=== PATIENT | female | born 1995 | race Hispanic/Latino ===

== ENCOUNTER → 2017-01-09 | Outpatient (REF) | payer BC | LOC: M SFHCLUC 16:24 | PROVIDERS: ATTEND Nurse Practitioner Family | DX: H92.01 Otalgia, right ear (principal) ==

== ENCOUNTER → 2017-12-12 | Outpatient (REF) | payer BC | LOC: M SFHCLERA 10:38 | DX: J02.9 Acute pharyngitis, unspecified (principal) ==

== ENCOUNTER → 2018-02-04 | Outpatient (REF) | payer BC ==
[2018-02-04 16:45] LABS: APPEARANCE, URINE HAZY (CLEAR); BACTERIA, URINE AUTO 1+ (NEGATIVE); BILIRUBIN, URINE AUTO NEGATIVE (NEGATIVE); BLOOD, URINE BLOOD 2+ (NEGATIVE); COLOR, URINE YELLOW (YELLOW); GLUCOSE, URINE (UA) AUTO NEGATIVE (NEGATIVE); KETONE, URINE AUTO NEGATIVE (NEGATIVE); LEUKOCYTE ESTERASE, URINE AUTO 1+ (NEGATIVE); MUCUS, URINE SMALL (NEGATIVE); NITRITE, URINE AUTO NEGATIVE (NEGATIVE); PROTEIN, URINE AUTO 1+ mg/dL (NEGATIVE); RBC, URINE AUTO 51 /HPF (0-3); SPECIFIC GRAVITY URINE AUTO 1.023 (1.002-1.035); SQUAMOUS EPITHELIAL CELL UR AU 3 /HPF (0-6); WBC, URINE AUTO 21 /HPF (0-3)
[2018-02-04 20:19] LABS: CHLAMYDIA DNA AMPLIFICATION NEGATIVE (NEGATIVE); GC DNA AMPLIFICATION NEGATIVE (NEGATIVE)
== END ==
LOC: M SFHCLERA 14:52
DX: R82.2 Biliuria (principal); R30.0 Dysuria
CPT/HCPCS: 81001

== ENCOUNTER → 2018-10-12 | Outpatient (CLI) | payer BC ==
--- NOTE | 2018-10-12 11:34 | REP ---
Right foot series: Four views. History: Foot lesion. Painful lesion plantar surface of the foot x2 weeks. Findings: Overall mineralization pattern is normal. An os perineum is noted which is a normal finding. There is a tiny Achilles calcaneal spur. No plantar spurring is seen. No plantar soft tissue mass or opaque foreign body is seen. No bony lesion. Impression: No significant bony abnormality is seen. Achilles calcaneal spurring. Electronically Signed by Lenin Doss MD 10/12/2018 12:45 P
== END ==
LOC: M LRY 10:48
PROVIDERS: ATTEND Physician Assistant
DX: M77.31 Calcaneal spur, right foot (principal); L98.9 Disorder of the skin and subcutaneous tissue, unspecified

== ENCOUNTER → 2019-01-01 | Outpatient (CLI) | payer BC | LOC: M OUTALCOH 07:54 | PROVIDERS: ATTEND Psychiatry & Neurology Psychiatry | DX: Z03.89 Encounter for observation for other suspected diseases and conditions ruled out (principal) ==

== ENCOUNTER 2019-01-09 14:59 | Outpatient (RCR) | payer BC | END 2019-01-27 | LOC: M OUTALCOH 14:59 | PROVIDERS: ATTEND Psychiatry & Neurology Psychiatry | DX: Z03.89 Encounter for observation for other suspected diseases and conditions ruled out (principal) ==

== ENCOUNTER → 2019-02-24 | Outpatient (REF) | payer BC ==
[2019-02-24 23:54] LABS: CHLAMYDIA DNA AMPLIFICATION POSITIVE (NEGATIVE); GC DNA AMPLIFICATION NEGATIVE (NEGATIVE)
== END ==
LOC: M SFHCLERA 15:11
PROVIDERS: ATTEND Physician Assistant
DX: R30.0 Dysuria (principal)

== ENCOUNTER → 2019-08-17 | Outpatient (REF) | payer BC | LOC: M SFHCLERA 10:30 | PROVIDERS: ATTEND Physician Assistant | DX: R50.9 Fever, unspecified (principal) ==

== ENCOUNTER → 2020-05-04 | Outpatient (REF) | payer BC, OTHER | LOC: M SFHCLUC 10:59 | PROVIDERS: ATTEND Nurse Practitioner Family | DX: R30.0 Dysuria (principal) ==